=== PATIENT | male | born 1960 | race Asian ===

== ENCOUNTER 2018-03-14 08:46 | Inpatient (IN) | payer BC ==
[~2018-03-14] VITALS: Ht 167.6 cm; Wt 103.7 kg
[2018-03-14 08:58] VITALS: Ht 167.6 cm; Wt 103.7 kg
[2018-03-14 10:14] LABS: BASOPHIL % 0.3 % (0-2); PLATELET COUNT 159 x10^3mcL (130-400); RED CELL DISTRIBUTION WIDTH 13.8 % (11.5-14.5)
[2018-03-14 10:37] LABS: CALCIUM 8.3 mg/dL (8.5-10.1); CARBON DIOXIDE 28.4 mmol/L (21-32); CHLORIDE SERUM 103 mmol/L (98-107); GFR1 > 60 mL/min; GLUCOSE SERUM 168 mg/dL (74-106); POTASSIUM SERUM 3.8 mmol/L (3.5-5.1); SODIUM SERUM 139 mmol/L (136-145)
[2018-03-14] MEDS ORDERED: SIMVASTATIN40 M1 PO (11:26)
[2018-03-14 11:41] LABS: ALBUMIN 4.1 g/dL (3.4-5.0); BILIRUBIN DIRECT 0.09 mg/dL (0.0-0.2); BILIRUBIN TOTAL 0.3 mg/dL (0.20-1.00); TOTAL PROTEIN, SERUM 7.7 g/dL (6.4-8.2)
[2018-03-14 12:17] VITALS: BP 128/75
[2018-03-14 12:43] VITALS: BP 128/75
[2018-03-14 13:57] LABS: T3 TOTAL 0.93 ng/mL
[2018-03-14 13:59] LABS: MAGNESIUM 2.2 mg/dL (1.8-2.4); PHOSPHOROUS 2.7 mg/dL (2.5-4.9)
[2018-03-14 14:08] LABS: CHOLESTEROL/HDL RATIO 3.9
[2018-03-14 14:18] LABS: FREE T4 0.77 ng/dL (0.76-1.46); FREE THYROXINE INDEX 1.6 ug/dL (1.4-4.5); T4(THYROXINE) 4.7 ug/dL (4.7-13.3)
[2018-03-14 16:23] LABS: microscopic required? NO
[2018-03-14 16:38] LABS: UA SPECIFIC GRAVITY 1.015 (1.005-1.035); urine erythrocyte NEGATIVE (NEGATIVE)
[2018-03-14 16:45] LABS: AMPHETAMINE QUAL UR NONE DETECTED (NEG <=1000)
[2018-03-14 17:46] VITALS: BP 119/68
[2018-03-14 21:00] VITALS: BP 116/69
[2018-03-14 22:02] VITALS: BP 117/66
[2018-03-15 07:00] VITALS: BP 110/67
[2018-03-15 08:01] LABS: BASOPHIL % 0.3 % (0-2); PLATELET COUNT 163 x10^3mcL (130-400)
[2018-03-15 08:20] LABS: CALCIUM 8.7 mg/dL (8.5-10.1); CARBON DIOXIDE 30.9 mmol/L (21-32); CHLORIDE SERUM 105 mmol/L (98-107); GFR1 > 60 mL/min; GLUCOSE SERUM 96 mg/dL (74-106); MAGNESIUM 2.2 mg/dL (1.8-2.4); PHOSPHOROUS 3.9 mg/dL (2.5-4.9); POTASSIUM SERUM 4.2 mmol/L (3.5-5.1); SODIUM SERUM 141 mmol/L (136-145)
[2018-03-15 10:25] VITALS: BP 104/61
[2018-03-15 10:39] VITALS: BP 104/61
[2018-03-15] MEDS ORDERED: MECLIZINE HCL12.5 MG PO (12:35)
== END 2018-03-15 14:38 | disposition home or self-care (01) | DRG 74 ==
LOC: ED 08:46 → DU 10:45
PROVIDERS: Emergency Medicine; Family Medicine Sports Medicine
DX: G90.8 Other disorders of autonomic nervous system (principal); E78.00 Pure hypercholesterolemia, unspecified; G47.33 Obstructive sleep apnea (adult) (pediatric); E78.5 Hyperlipidemia, unspecified; Z53.29 Procedure and treatment not carried out because of patient's decision for other reasons; R73.03 Prediabetes; E83.51 Hypocalcemia; Z79.899 Other long term (current) drug therapy; Z82.49 Family history of ischemic heart disease and other diseases of the circulatory system; Z56.0 Unemployment, unspecified
CPT/HCPCS: 83880; 84439; J7030; J8597; Q0092; Q0162